=== PATIENT | female | born 1960 | race Caucasian/White ===

== ENCOUNTER 2021-06-15 10:15 | Outpatient (RCR) | payer OTHER, SELFPAY ==
--- NOTE | 2021-06-15 11:46 | PTOPEVAL ---
PHYSICAL THERAPY EVALUATION Thank you for referring Taylor Bunn to [facility]– [place].? Loida was evaluated for the dx of BPPV. The patient is scheduled to be seen for therapy? 1 x/week for 1-2 weeks. Please review, sign, date and return this plan of care BRADEN. I agree with and certify that the following plan of care is medically necessary. Referring Physician Date Attending Provider: Song Yeager MD *PT Outpatient Evaluation Start: 06/15/21 10:31 Freq: Status: Active Protocol: Document 06/15/21 10:31 MLV (Rec: 06/15/21 11:34 MLV [id number]) Therapy Assessment Status Assessment Status Assessment Status Evaluation Evaluation Information Problem Diagnosis BPPV Onset 2017 Cause no injury Additional Evaluation Detail In 2017 the pt had been sick with the flu and started having dizziness and odor sensitivities after it. The patient will have a few weeks with no symptoms but then can wake up with severe dizziness. The patient had a severe bout in April and corrected it after watching a video on how to do some BPPV exercises. The patient got relief with the exercises and has been symptom free since then. The patient reports she still will have dizziness in am if she sleeps on her right side. Pain Assessment Timing of Pain Assessment Timing of Pain Assessment Assessment Self Report Self Report Pain Level 0 Pain Score Pain Score 0: Self Report Upper Extremity Range of Motion General Upper Extremity Range of Motion Reason Not Measured WFL/Left,WFL/Right Lower Extremity Range of Motion General Lower Extremity Range of Motion Reason Not Measured WFL/Left,WFL/Right Lower Extremity Muscle Strength Testing General Lower Extremity Strength Reason Not Measured WFL/Left,WFL/Right Upper Extremity Muscle Strength Testing General Upper Extremity Strength Reason Not Measured WFL/Left,WFL/Right Bed Mobility Assessment Bed Mobility Bed Mobility Assistive Devices None Bed Type Mat Overall Bed Mobility Ability Independent Bed Mobility Comments no noted guarding for sit to supine, mild guarding for supine to sit. Pt reports concern when sitting from supine for
--- NOTE | 2021-07-01 11:47 | PCPTNOTE ---
PHYSICAL THERAPY DISCHARGE Attending Provider: Song Yeager MD Patient:Taylor Bunn Date of :1960 Patient has not returned for any further treatments since 06/15/2021, therefore she will be discharged at this time. The patient called and cancelled appts. and reports feeling better and not needing any further treatment. Patient?s initial visit was on 06/15/2021 10:30 and she had a total of 1 visit. The goals have been met. Thank you for referring this patient to [facility]. Please review, sign, date and return this discharge summary BRADEN. I have been updated about the patient's current status and I agree with discharge from the above service at this time. Referring Physician Date
== END 2021-07-02 16:41 | disposition home or self-care (01) ==
LOC: ANHPT 10:15
PROVIDERS: PCP Student in an Organized Health Care Education/Training Program; Visit Provider Otolaryngology
DX: H81.10 Benign paroxysmal vertigo, unspecified ear (principal)
CPT/HCPCS: 97110; 97161

== ENCOUNTER 2021-06-18 08:42 | Outpatient (CLI) | payer OTHER, SELFPAY ==
--- NOTE | ~2021-06-18 | MR_ITS ---
EXAMINATION: MR brain IAC wo/w con DATE: 06/18/2021 11:04 INDICATION: Benign paroxysmal vertigo, unspecified ear. TECHNIQUE: Magnetic resonance imaging (MRI) of the brain, brainstem, and internal auditory canals was performed without and with 18 mL MultiHance intravenous contrast. Sequences included sagittal and ax ial T1-weighted FSE, axial diffusion-weighted FS EPI, axial T2*-weighted GRE, axial T2-weighted FLAIR Propeller, axial T2-weighted Propeller, small lofun-ri-pkhb coronal FIESTA, small pgpoa-zd-oixe satish nal T1-weighted FSE, and small rhekb-wx-hrqf axial T1-weighted SPGR. Postcontrast sequences included axial T1-weighted FSE, small kzohm-rl-rtuv coronal T1-weighted FSE, and small rnbxc-vq-oeny axial T1- weighted SPGR. Apparent diffusion coefficient (ADC) maps were created. COMPARISON: None. FINDINGS: There are scattered areas of nonspecific increased T2-weighted signal intensity in the cere bral white matter, which is within normal limits for the patient's age. There is no intracranial hemo rrhage, acute infarction, or abnormal intracranial mass lesion. The ventricles are normal in size. Th e internal auditory canals and inner and middle ears are normal. There is mild mucosal thickening in the paranasal sinuses. The orbits are normal. IMPRESSION: 1. Normal brain. Reviewed, dictated and finalized at location A. IMPRESSION: 1. Normal brain.
[2021-06-18 09:58] LABS: Estimated Glomerular Filt Rate 57
== END 2021-06-18 08:43 | disposition home or self-care (01) ==
PROVIDERS: PCP Student in an Organized Health Care Education/Training Program; Visit Provider Otolaryngology
DX: H81.10 Benign paroxysmal vertigo, unspecified ear (principal)
CPT/HCPCS: 70553; A9577

== ENCOUNTER 2023-06-09 13:18 | Observation (INO) | payer OTHER, SELFPAY ==
[2023-06-09] VITALS (33 sets, daily range): BP systolic 111–164; BP diastolic 59–73; PULSE 55–90; RESP 9–22; TEMP 36.4–36.8; O2SAT 96–100; BMI 31.1
--- NOTE | ~2023-06-09 | XR_ITS ---
EXAMINATION: XR chest 2V DATE: 06/09/2023 14:14 INDICATION: Chest pain. Arrhythmia. TECHNIQUE: PA and lateral views of the chest were obtained. COMPARISON: Chest radiograph dated 07/23/2016 FINDINGS: The lungs remain clear with no focal airspace opacities, pulmonary edema, pleural effusion or pneumot horax. The cardiomediastinal silhouette is normal. Small bone island at the right humeral head. Mild thoracic spondylosis. IMPRESSION: 1. No acute cardiopulmonary disease. Reviewed, dictated and finalized at location A.
--- NOTE | 2023-06-09 13:20 | ECG_ITS ---
Measurements Intervals [place] Rate: 75 P: 35 MT: 145 QRS: 37 QRSD: 86 T: 53 QT: 359 QTc: 401 Interpretive Statements SINUS RHYTHM NORMAL ECG NO PREVIOUS ECG AVAILABLE FOR COMPARISON Electronically Signed On 06-09-2023 13:42:45 CDT by Bhanu Marquis D.O.
[2023-06-09 13:59] LABS: Basophils Absolute Auto 0.1 K/mm3 (0.0-0.1); Basophils Percent Auto 0.7 % (0.2-1.2); Eosinophils Absolute Auto 0.2 K/mm3 (0-0.3); Eosinophils Percent Auto 2.6 % (0-4.4); Hemoglobin 12.7 g/dL (12.0-15.0); Immature Granulocyte Absolute 0.03 K/mm3 (0.00-0.031); Immature Granulocyte Percent A 0.4 % (0-0.5); Lymphocytes Absolute Auto 1.93 K/mm3 (0.9-3.2); Lymphocytes Percent Auto 26.6 % (18.3-44.2); Mean Corpuscular HGB Conc 33.4 g/dl (32-36); Mean Corpuscular Hemoglobin 29.7 pg (26-34); Mean Platelet Volume 10.7 fl (7.4-10.4); Monocytes Absolute Auto 0.4 K/mm3 (0.1-0.6); Monocytes Percent Auto 5.5 % (2.6-8.5); Neutrophils Absolute Auto 4.7 K/mm3 (1.3-6.7); Neutrophils Percent Auto 64.2 % (45.5-73.1); Platelet Count Result 231 k/mm3 (150-375); Red Blood Count 4.27 M/mm3 (4.2-5.4); Red Cell Distribution Width 12.5 % (11.5-14.5); White Blood Count 7.3 K/mm3 (4.5-10.0)
--- NOTE | 2023-06-09 14:09 | PC.NURSE ---
Patient off unit to radiology.
[2023-06-09 14:13] LABS: INR 0.9; Prothrombin Time 12.7 Seconds (11.1-14.7)
[2023-06-09 14:14] LABS: Partial Thromboplastin Time 27.5 SECONDS (22.3-36.8)
[2023-06-09 14:24] LABS: Alanine Aminotransferase 28 U/L (6-35); Albumin Level 4.6 g/dL (3.5-5.1); Alkaline Phosphatase 94 U/L (38-126); Anion Gap 8 mmol/L (8-16); Aspartate Amino Transferase 34 U/L (14-36); Bilirubin,Total 0.4 mg/dL (0.2-1.3); Blood Urea Nitrogen 13 mg/dL (7-17); Calcium 9.3 mg/dL (8.4-10.2); Carbon Dioxide 25 mmol/L (22-30); Chloride 104 mmol/L (98-107); Estimated CRCL calculation 97 ml/min; Estimated Glomerular Filt Rate > 60; Glucose 102 mg/dL (65-110); Lipase 48 U/L (23-300); Potassium 3.9 mmol/L (3.4-5.0); Sodium 137 mmol/L (137-145)
[2023-06-09 14:35] LABS: Troponin I < 0.012 ng/mL (0.000-0.034)
--- NOTE | 2023-06-09 14:44 | ED.ARRPALP ---
HPI - Arrhythmia/Palpitations General Chief Complaint: Arrhythmia/Palpitations Stated Complaint: Chest discomfort and palpitations Time Seen by Provider: 06/09/23 14:08 History of Present Illness HPI narrative: Patient is a 63-year-old female with a history of paroxysmal A-fib presenting with palpitations. Patient states that her senior web developer is at [facility]. States that she saw him last month. States that she has metoprolol as needed for when she goes into A-fib. States that for the last several days she has been having palpitations and her Apple Watch that says A-fib. Complains of intermittent substernal/epigastric shooting pains. No lightheadedness or shortness of breath. States that she took her metoprolol yesterday and the day before which did resolve the palpitations but then they returned. She has not taken her metoprolol today. States that she is currently experiencing palpitations. No fevers or chills, headache, numbness or weakness, cough, abdominal pain, nausea or vomiting, diarrhea, leg swelling. Related Data Home Medications Medication Instructions Recorded Confirmed Vitamin D3 (with calcium carb) 1 tablet PO DAILY 06/09/23 06/09/23 acetaminophen 500 mg tablet 500 mg PO Q6H PRN Migraine Headache 06/09/23 06/09/23 cholecalciferol (vitamin D3) 25 25 mcg PO DAILY 06/09/23 06/09/23 mcg (1,000 unit) tablet (Vitamin D3) cyanocobalamin (vitamin B-12) 1,000 mcg sublingual WEEKLY 06/09/23 06/09/23 1,000 mcg sublingual tablet magnesium See Rx Instructions .Route .COMPLEX 06/09/23 06/09/23 multivit with minerals-iron 18 1 tablet PO DAILY 06/09/23 06/09/23 mg-folic ac 400 mcg-vit K 25 mcg tablet (Adults Multivitamin) Allergies Allergy/AdvReac Type Severity Reaction Status Date / Time levofloxacin Allergy Severe angioedema Verified 06/09/23 13:54 propoxyphene Allergy Severe NAUSEA AND Verified 06/09/23 13:54 VOMITING vancomycin Allergy Severe rash Verified 06/09/23 13:54 hydrocodone Allergy Unknown Unknown Verified 06/09/23 13:54 paroxetine Allergy Unknown Unknown Verified 06/09/23 13:54 Sulfa (Sulfonamide Allergy Unknown Rash Verified 06/09/23 18:48 Antibiotics) Review of Systems Review of Systems: All systems reviewed & are unremarkable except as noted in HPI and below PMFSH Past Medical History Medical History (Updated 06/15/23 @ 14:56 by Annie Jara MD) Atrial fibrillation Migraine Vestibular migraine Surgical History Surgical History (Updated 06/09/23 @ 22:28 by Brigette Greenwood NP) History of back surgery Hx of cholecystectomy Family History Family History (Updated 06/09/23 @ 22:29 by Brigette Greenwood NP) Other Hypertension Social History Social History (Updated 06/09/23 @ 22:37 by Brigette Greenwood NP) Social History: The patient lives with her . She has 1 daughter. 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 She is a lifelong nonsmoker. She does not use any alcohol marijuana or illicit drugs. Her is a durable power district attorney for healthcare. Code status full code Smoking status: Never smoker Alcohol intake: never Substance use: never Lack of Transportation: No Lack of Food: Never True Current Housing: I Have Housing Concerned About Future Housing: No Difficulty Paying Gas/Electric Bills: No Difficulty Paying for Meds: No Currently Unemployed: No Education: Bachelor's Degree Difficulty w/ Childcare or Family Care: No Spiritual care concerns: No Exam Narrative: GENERAL: Well-appearing, well-nourished, and in no acute distress. HEAD: Normocephalic, atraumatic. EYES: PERRLA and EOMI. ENT: Nares clear, no rhinorrhea or epistaxis. Mucous membranes moist. NECK: Supple. CHEST: Clear to auscultation. No respiratory distress. HEART: Regular rate and rhythm. No murmur heard. Normal peripheral pulses. ABDOMEN: Soft, nontender, nondistended EXTREMITIES: Normal range of
[2023-06-09] MEDS: LACTATED RINGERS 1,000 ML 999 ML IV CONT (15:26)
--- NOTE | 2023-06-09 15:35 | PC.NURSE ---
Per verbal order from Dr. Jara ASA discontinued.
[2023-06-09 16:23] LABS: Troponin I < 0.012 ng/mL (0.000-0.034)
--- NOTE | 2023-06-09 18:46 | ADMGEN ---
This patient, Taylor Bunn, was admitted to 2 Medical Room 260-01. Patient/family oriented to hospital policies and general routines including ID bracelet, bed and alarms, visiting hours, pain management, procedures, bathroom and other care routines, personal items, smoking policy, room service/diet, and visiting hours. Information on how to activate the Rapid Response Team has been discussed. Patient/Family are encouraged to report perceived risks to care and to ask questions if they do not understand what they are told or what they should do.
[2023-06-09 20:08] LABS: Troponin I < 0.012 ng/mL (0.000-0.034)
--- NOTE | 2023-06-09 21:47 | PM.IMHP ---
H&P: HPI History of Present Illness Date/Time: 06/09/23 21:47 Chief Complaint: Palpitations. Narrative: This is a 63-year-old female patient who stated that she has a history. Small atrial fibrillation with palpitations. The patient typically goes to flanger at [facility]. The patient stated that she takes p.r.n. metoprolol as needed when she goes into an irregular heart rate. The patient is not on any anticoagulation. The patient stated that she was having palpitations today that she has a Apple watch that was stating she is in AFib people the patient has no lightheadedness or short nests of breath. The patient did not take her metoprolol today. The patient has migraines that she just takes Tylenol for the symptoms.. Patient is complaining of neck pain. Patient's EKG was sinus rhythm. Her heart rate is in 60s. She is currently sinus rhythm. Troponins are negative x3. Chest x-ray was read as no acute cardiopulmonary disease. The patient is being admitted to observation status on the date of service of 06/08/2023. Review of Systems Review of Systems: All systems reviewed & are unremarkable except as noted in HPI and below Constitutional: Constitutional: Reports as per HPI and Reports no additional constitutional complaints Eyes: Eyes: Reports as per HPI and Reports no additional eye complaints ENT: Reports system reviewed and no additional complaints, except as documented and Reports Normal hearing present Cardiovascular: Cardiovascular: Reports no additional cardiovascular complaints Respiratory: Respiratory: Reports no additional respiratory complaints and Reports no additional respiratory complaints Gastrointestinal: Gastrointestinal: Reports as per HPI and Reports no additional gastrointestinal complaints Musculoskeletal: Musculoskeletal: Reports no additional musculoskeletal complaints Integumentary/Breasts: Skin/Breast: Reports system reviewed and no additional complaints, except as docu and Reports as per HPI Neurologic: Reports system reviewed and no additional complaints, except as documented, Reports as per HPI and Reports Normal hearing present Psychiatric: Psychiatric: Reports no additional psychiatric complaints and Reports as per HPI Endocrine: Endocrine: Reports no additional endocrine complaints Hematologic/Lymphatic: Hematologic/Lymphatic: Reports no additional hematologic/lymphatic complaints Allergic/Immunologic: Allergic/Immunologic: Reports no additional allergic/immunologic complaints [facility] Past Medical History Medical History (Updated 06/09/23 @ 22:40 by Brigette Greenwood NP) Atrial fibrillation Migraine Vestibular migraine Surgical History Surgical History (Updated 06/09/23 @ 22:28 by Brigette Greenwood NP) History of back surgery Hx of cholecystectomy Family History Family History (Updated 06/09/23 @ 22:29 by Brigette Greenwood NP) Other Hypertension Social History Social History (Updated 06/09/23 @ 22:37 by Brigette Greenwood NP) Social History: The patient lives with her . She has 1 daughter. 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 She is a lifelong nonsmoker. She does not use any alcohol marijuana or illicit drugs. Her is a durable power tax associate attorney for healthcare. Code status full code Smoking status: Never smoker Alcohol intake: never Substance use: never Lack of Transportation: No Lack of Food: Never True Current Housing: I Have Housing Concerned About Future Housing: No Difficulty Paying Gas/Electric Bills: No Difficulty Paying for Meds: No Currently Unemployed: No Education: Bachelor's Degree Difficulty w/ Childcare or Family Care: No Spiritual care concerns: No Meds Home Medications and Allergies Home Medications Medication Instructions Recorded Confirmed Type Vitamin D3 (with calcium carb) 1 tablet PO DAILY 06/09/23 06/09/23 History acetamino
[2023-06-09] MEDS: ACETAMINOPHEN 500 MG TABLET PO (22:56)
[2023-06-09] MEDS: ENOXAPARIN 100 MG/ML SYRINGE 90 MG SUB-Q (22:57)
[2023-06-10] VITALS (8 sets, daily range): BP systolic 113–124; BP diastolic 57–75; PULSE 57–90; RESP 16–20; TEMP 36–36.5; O2SAT 99–100
--- NOTE | 2023-06-10 | ECHO_ITS ---
Patient Info Name: Taylor Bunn Age: 63 years : 1960 Gender: Female Ht: 67 in Wt: 198 lbs BSA: 2.09 m2 HR: 60 bpm BP: 114 / 58 mmHg Heart Rhythm: Sinus Rhythm Technical Quality: Fair Exam Date: 06/10/2023 10:04 AM Exam Location: [facility] Patient Status: Inpatient Admit Date: 06/09/2023 Staff Ordering Physician: Brigette Greenwood NP Oil Field Operator: Deanna James RDCS Attending Provider: Hannah Baca MD Referring Physician: Timo DIMAS; Exam Type: CA echo doppler color flow Study Info Indications R00.2 - Palpitations Complete two-dimensional, color flow and Doppler transthoracic echocardiogram is performed. Summary 1. Complete two-dimensional, color flow and Doppler transthoracic echocardiogram is performed. 2. Normal left and right ventricular size and systolic function. 3. Normal diastolic function. 4. No valvular dysfunction noted by Doppler. 5. Normal sinus rhythm. Left Ventricle Left ventricular chamber dimension is normal. Left ventricular systolic function is normal, estimated at 60-65%. The left ventricular diastolic function is normal. Right Ventricle Right ventricular chamber dimension is normal. Left Atria Left atrial chamber dimension is mildly enlarged. Right Atria Right atrial chamber dimension is normal. Aortic Valve The aortic valve is normal. Pulmonic Valve The pulmonic valve is not well visualized. Mitral Valve The mitral valve has normal leaflets. Tricuspid Valve The tricuspid valve leaflets are normal. Pericardium/Pleural The pericardium appears normal. Aorta The aortic root size at the sinus of Valsalva is normal. Left Ventricular Outflow Tract Name Value Normal LVOT 2D LVOT Diameter 2.0 cm LVOT Doppler LVOT Peak Gradient 5 mmHg LVOT Mean Gradient 2 mmHg LVOT VTI 21 cm LVOT VTI/AV VTI Ratio 0.7 LVOT Stroke Volume 67 ml LVOT CO 3.9 l/min LVOT CI 1.9 l/min/m2 Pulmonic Valve Name Value Normal RVOT Doppler RVOT Peak Gradient 2 mmHg PV Doppler PV Peak Gradient 10 mmHg Mitral Valve Name Value Normal MV Doppler MV Decel Dundy 567 cm/s2 MV PHT 45 ms MV Area (PHT) 4.9 cm2 4.0-5.0 MV Diastolic Function MV E Peak Velocity
[2023-06-10 06:30] LABS: Basophils Percent Auto 0.5 % (0.2-1.2); Eosinophils Absolute Auto 0.2 K/mm3 (0-0.3); Eosinophils Percent Auto 3.2 % (0-4.4); Hematocrit 36.5 % (37.0-47.0); Immature Granulocyte Absolute 0.03 K/mm3 (0.00-0.031); Immature Granulocyte Percent A 0.5 % (0-0.5); Lymphocytes Absolute Auto 2.09 K/mm3 (0.9-3.2); Lymphocytes Percent Auto 33.8 % (18.3-44.2); Mean Corpuscular HGB Conc 32.9 g/dl (32-36); Mean Corpuscular Hemoglobin 29.6 pg (26-34); Mean Corpuscular Volume 89.9 fl (80-100); Monocytes Absolute Auto 0.5 K/mm3 (0.1-0.6); Monocytes Percent Auto 7.6 % (2.6-8.5); Neutrophils Absolute Auto 3.4 K/mm3 (1.3-6.7); Neutrophils Percent Auto 54.4 % (45.5-73.1); Platelet Count Result 209 k/mm3 (150-375); Red Blood Count 4.06 M/mm3 (4.2-5.4); Red Cell Distribution Width 12.6 % (11.5-14.5); White Blood Count 6.2 K/mm3 (4.5-10.0)
[2023-06-10 06:44] LABS: Lactic Acid Reflex 2.1 mmol/L (0.7-2.0)
[2023-06-10 06:57] LABS: Alanine Aminotransferase 26 U/L (6-35); Albumin Level 4.1 g/dL (3.5-5.1); Alkaline Phosphatase 83 U/L (38-126); Anion Gap 4 mmol/L (8-16); Aspartate Amino Transferase 31 U/L (14-36); Bilirubin,Total 0.8 mg/dL (0.2-1.3); Blood Urea Nitrogen 12 mg/dL (7-17); Carbon Dioxide 29 mmol/L (22-30); Chloride 107 mmol/L (98-107); Estimated CRCL calculation 96 ml/min; Estimated Glomerular Filt Rate > 60; Glucose 89 mg/dL (65-110); Magnesium 2.2 mg/dL (1.6-2.3); Potassium 4.5 mmol/L (3.4-5.0); Sodium 140 mmol/L (137-145)
[2023-06-10 08:20] LABS: Free T4 Free Thyroxine Reflex 1.08 ng/dL (0.78-2.19)
[2023-06-10] MEDS: MULTIVITAMINS /C LUTEIN (CENTRUM SILVER) TABLET *BKC 1 TAB PO (08:40)
[2023-06-10] MEDS: ACETAMINOPHEN 500 MG TABLET PO (08:41)
[2023-06-10] MEDS: METOPROLOL SUCCINATE EXT REL 12.5 MG TABCR PO (08:41)
[2023-06-10] MEDS: CHOLECALCIFEROL 1,000 UNITS TABLET 1000 UNITS PO (08:41)
[2023-06-10] MEDS: ENOXAPARIN 100 MG/ML SYRINGE 90 MG SUB-Q (08:44)
[2023-06-10 09:25] LABS: Reflex Lactic Acid Yes or No Add Lactic
[2023-06-10 09:53] LABS: Lactic Acid 2.2 mmol/L (0.7-2.0)
[2023-06-10 11:11] LABS: Total Triiodothyronine (T3) 1.66 NG/ML (0.97-1.69)
[2023-06-10] MEDS: LEVOTHYROXINE SODIUM 25 MCG TABLET PO (11:23)
--- NOTE | 2023-06-10 14:11 | PM.DS ---
DS: Admitting Diagnosis Discharge Date 06/10/23 1200 Admitting Diagnosis Afib/A.flutter DS: Discharge Diagnosis Discharge Diagnosis (1) Atrial fibrillation: Qualifiers: Atrial fibrillation type: unspecified Qualified Code(s): I48.91 - Unspecified atrial fibrillation Code(s): I48.91 - Unspecified atrial fibrillation Status: Acute Assessment and Plan: The patient stated that she has a safety inspector at [facility] however she would be happy to see the safety inspector here. Will need to get records from her safety inspector at [facility]. The patient stated that the attempted to do a stress test at 1 time but it was not completed. The patient does not recall having an echo. The patient stated she has an Apple watch and it was telling her she was in atrial fibrillation. The patient has p.r.n. metoprolol. However I started her on a low-dose once a day metoprolol as her heart rate is in the 60s now. Hold if her heart rate becomes 50 or less. I did start her on subcu Lovenox. Twin Vasc score is only a 1. So she may just be able to take a aspirin. Further recommendation per Cardiology. I did not feel comfortable giving a very big dose of metoprolol as her blood pressure is 128/65 at this point. The patient stated that she was having palpitations. Check thyroid levels and magnesium as well. (2) Vestibular migraine: Code(s): G43.809 - Other migraine, not intractable, without status migrainosus Status: Acute Assessment and Plan: Continue with IV Tylenol. She stated this is which she takes at home. DS: Summary Hospital Course Hospital Course: patient is 63-year-old female with past medical history AFib, migraine who presented to the ED with complaints AFib and palpitations. Upon arrival to the ED EKG was performed showed sinus rhythm. Patient was placed in tele monitor which did catch a couple of a flutter moments. Metoprolol has been given and patient was started on daily metoprolol instead of p.r.n.. TSH was noted to be elevated at 9.730. Magnesium was fine at 2.2 along with potassium of 4.5. Patient did state that she had these episodes Tuesday through has been taking the metoprolol most days. Spoke with Cardiology who stated the patient needs to follow-up with her safety inspector for a 30 day event monitor. Did speak to the patient at length about plan of care. Talked to her and her about repeat labs in 6 weeks for the TSH, followed up with her safety inspector for recommendations for an event monitor and to continue metoprolol daily and levothyroxine. Patient and both verbalized understanding. Also explained her that if she does going to a sustained atrial rhythm to come to the hospital for further treatment. Patient did verbalize understanding currently patient is denying any chest pain, shortness a breath, nausea, vomiting, diarrhea constipation. Status at Discharge Functional status at discharge: independent ambulation Overall status at discharge: patient is progressing back to baseline Time Spent with Patient Time attestation: Total time spent providing and/or coordinating discharge services: 43 minutes Time spent: Greater than 30 minutes Specific discharge activities: Diagnostic testing, chart review, developing a treatment plan, education, care coordination documentation, physical exam, result review Exam Narrative: General: well-nourished, well-appearing 63-year-old female, sitting up in bed, comfortable, NARD Neuro: awake, alert and oriented x4, speech clear, no focal neuro deficits noted HEENMT: normocephalic, atraumatic, EOMI, sclerae anicteric, moist oral mucosa Respiratory: Clear to auscultation bilaterally without crackles, rhonchi or wheezes, nonlabored breathing Cardio: regular rate, regular rhythm with S1-S2 Abdomen: nondistended, normoactive bowel sounds, soft, nontender to palpation Extremities: no edema, erythema, or tenderne
== END 2023-06-10 16:08 | disposition home or self-care (01) ==
LOC: ANHED 14:31 → ANH2MED 18:27
PROVIDERS: Emergency Medicine; Nurse Practitioner; Admitting Provider Family Medicine; Emergency Provider Emergency Medicine; PCP Student in an Organized Health Care Education/Training Program; Visit Provider Chiropractor
DX: R00.2 Palpitations (principal); I48.91 Unspecified atrial fibrillation; R07.9 Chest pain, unspecified; G43.809 Other migraine, not intractable, without status migrainosus; Z79.1 Long term (current) use of non-steroidal anti-inflammatories (NSAID); Z79.899 Other long term (current) drug therapy
CPT/HCPCS: 36415; 71046; 80053; 83605; 83690; 83735; 84439; 84443; 84480; 84484; 85025; 85610; 85730; 93005; 93306; 96360; 96372; 99285; A9270; G0378; J1650; J7120

== ENCOUNTER 2023-09-16 15:20 | Emergency (ER) | payer OTHER, SELFPAY ==
[2023-09-16 15:38] VITALS: BP 131/71; PULSE 78; RESP 18; TEMP 36.9; O2SAT 98
--- NOTE | 2023-09-16 17:29 | ED.SKABFB ---
HPI - Skin/Abscess/Foreign Bdy General Chief complaint: Skin/Abscess/Foreign Body Stated complaint: possible thrombosed hemorrhoid Time Seen by Provider: 09/16/23 17:11 Source: patient Mode of arrival: ambulatory Limitations: no limitations History of Present Illness HPI narrative: This is a 63-year-old female that presents to the emergency department for pain with bowel movements. Reports she has been having painful bowel movements all week. Reports trouble with constipation chronically. She is also had a little bit of bright red blood in the stool and when she wipes. She has been trying rhej-zbn-lcbpynz creams to treat hemorrhoids with little relief. She is not on any anticoagulation. She additionally reports she has had some dysuria today. Denies fevers, abdominal pain, or vomiting. Related Data Home Medications Medication Instructions Recorded Confirmed Vitamin D3 (with calcium carb) 1 tablet PO DAILY 06/09/23 06/09/23 acetaminophen 500 mg tablet 500 mg PO Q6H PRN Migraine Headache 06/09/23 06/09/23 cholecalciferol (vitamin D3) 25 25 mcg PO DAILY 06/09/23 06/09/23 mcg (1,000 unit) tablet (Vitamin D3) cyanocobalamin (vitamin B-12) 1,000 mcg sublingual WEEKLY 06/09/23 06/09/23 1,000 mcg sublingual tablet magnesium See Rx Instructions .Route .COMPLEX 06/09/23 06/09/23 multivit with minerals-iron 18 1 tablet PO DAILY 06/09/23 06/09/23 mg-folic ac 400 mcg-vit K 25 mcg tablet (Adults Multivitamin) Allergies Allergy/AdvReac Type Severity Reaction Status Date / Time levofloxacin Allergy Severe angioedema Verified 09/16/23 15:21 propoxyphene Allergy Severe NAUSEA AND Verified 09/16/23 15:21 VOMITING vancomycin Allergy Severe rash Verified 09/16/23 15:21 hydrocodone Allergy Unknown Unknown Verified 09/16/23 15:21 paroxetine Allergy Unknown Unknown Verified 09/16/23 15:21 Sulfa (Sulfonamide Allergy Unknown Rash Verified 09/16/23 15:21 Antibiotics) Review of Systems Review of Systems: CONSTITUTIONAL: Denies fever GASTROINTESTINAL: Denies abdominal pain, nausea, vomiting GENITOURINARY: Denies dysuria All systems reviewed & are unremarkable except as noted in HPI and below PMFSH Past Medical History Medical History (Updated 09/16/23 @ 18:05 by Umm Garcia PA-C) Atrial fibrillation Migraine Vestibular migraine Surgical History Surgical History (Updated 06/09/23 @ 22:28 by Brigette Greenwood NP) History of back surgery Hx of cholecystectomy Family History Family History (Updated 06/09/23 @ 22:29 by Brigette Greenwood NP) Other Hypertension Social History Social History (Updated 06/09/23 @ 22:37 by Brigette Greenwood NP) Social History: The patient lives with her . She has 1 daughter. 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 She is a lifelong nonsmoker. She does not use any alcohol marijuana or illicit drugs. Her is a durable power litigation attorney associate for healthcare. Code status full code Smoking status: Never smoker Alcohol intake: never Substance use: never Lack of Transportation: No Lack of Food: Never True Current Housing: I Have Housing Concerned About Future Housing: No Difficulty Paying Gas/Electric Bills: No Difficulty Paying for Meds: No Currently Unemployed: No Education: Bachelor's Degree Difficulty w/ Childcare or Family Care: No Spiritual care concerns: No Exam Narrative: GENERAL: Well-appearing, well-nourished, and in no acute distress. HEAD: Normocephalic, atraumatic. EYES: EOMI. CHEST: No respiratory distress. HEART: Regular rate ABDOMEN: Soft, nontender, nondistended, normal active bowel sounds. EXTREMITIES: Normal range of motion. No edema. SKIN: Warm, dry, no rash. NEURO: No focal deficits. Alert and oriented x3. PSYCH: Normal mood and affect RECTAL: Fissure present. No active bleeding Course Course Emergency Course: Patient updated on work-up and agre
[2023-09-16 17:59] LABS: Appearance Urine Clear (Clear); Bacteria Urine None Seen /hpf; Bilirubin Urine Negative (Negative); Blood Urine Negative (Negative); Color Urine Yellow (Yellow); Glucose Urine UA Negative (Negative); Ketones Urine Negative (Negative); Leukocyte Esterase Ur 2+ LEU/UL (Negative); Nitrate Urine Negative (Negative); Non Pathogenic Casts 0-2; Protein Urine Negative (Negative); RBC Urine 0-2 /hpf (0-2); Specific Grav Ur 1.006 (1.001-1.035); Squamous Epithelial Cell Urine None seen /hpf (Few); Urobilinogen Urine 0.2 mg/dL (<2.0); pH Urine 6.5 (5.0-9.0)
[2023-09-16 18:01] VITALS: BP 118/75; PULSE 61; RESP 16; O2SAT 99
[2023-09-16 18:01] LABS: Add Urine Microscopic? YES
== END 2023-09-16 18:37 | disposition home or self-care (01) ==
PROVIDERS: Emergency Provider Physician Assistant; PCP Student in an Organized Health Care Education/Training Program
DX: K60.2 Anal fissure, unspecified (principal); N39.0 Urinary tract infection, site not specified; K59.09 Other constipation; I48.91 Unspecified atrial fibrillation; Z90.49 Acquired absence of other specified parts of digestive tract
CPT/HCPCS: 81001; 87086; 87088; 99283

== ENCOUNTER 2024-03-21 01:26 | Day surgery (SDC) | payer OTHER, SELFPAY ==
[2024-03-05 15:41] VITALS: BMI 31.1
[2024-03-21 08:50] VITALS: BP 122/61; PULSE 62; RESP 19; TEMP 36.2; O2SAT 100
[2024-03-21] MEDS: LACTATED RINGERS 1,000 ML 150 ML IV CONT (09:01)
--- NOTE | 2024-03-21 09:04 | WPDANESEPPF ---
Anes - Initial Pre Proc Eval Procedure: Operation Date: 03/21/24 10:00 Proposed Procedures p Screening Colonoscopy - Gio Baugh MD Date/Time: 03/21/24 09:04 Surgeon: Gio Baugh MD Pre Op Diagnosis: neoplasm screening Patient Data Age: 64 Gender: F Height: 1.7 m Weight: 83.9 kg Last Vital Signs Temp 97.1 F L 03/21/24 08:50 Pulse 62 03/21/24 08:50 Resp 19 03/21/24 08:50 BP 122/61 03/21/24 08:50 Pulse Ox 100 03/21/24 08:50 O2 Del Method Room Air 03/21/24 08:50 Allergies Allergy/AdvReac Type Severity Reaction Status Date / Time levofloxacin Allergy Severe angioedema Verified 03/21/24 08:49 propoxyphene Allergy Severe NAUSEA AND Verified 03/21/24 08:49 VOMITING vancomycin Allergy Severe rash Verified 03/21/24 08:49 hydrocodone Allergy Unknown Vomiting Verified 03/21/24 08:49 paroxetine Allergy Unknown Rash Verified 03/21/24 08:49 Sulfa (Sulfonamide Allergy Unknown Rash Verified 03/21/24 08:49 Antibiotics) Home Medications Medication Instructions Recorded Confirmed Type acetaminophen 500 mg tablet 500 mg PO Q6H PRN Migraine Headache 06/09/23 03/05/24 History cholecalciferol (vitamin D3) 25 25 mcg PO BID 06/09/23 03/05/24 History mcg (1,000 unit) tablet (Vitamin D3) magnesium See Rx Instructions .Route .COMPLEX 06/09/23 03/05/24 History levothyroxine 25 mcg capsule 25 mcg PO DAILY #30 caps 06/10/23 03/21/24 Rx metoprolol succinate 25 mg 12.5 mg PO DAILY #30 tabs 06/10/23 03/05/24 Rx tablet,extended release 24 hr Patient hx anesthesia problems: none Family hx anesthesia problems: none Results Review: All pre-operative results and documents have been reviewed as part of the pre-operative evaluation. ON LICENSE OF [facility] Past Medical History Medical History (Updated 09/17/23 @ 00:00 by Kirby Thomas) Atrial fibrillation Migraine Vestibular migraine Surgical History Surgical History (Updated 06/09/23 @ 22:28 by Brigette Greenwood NP) History of back surgery Hx of cholecystectomy Family History Family History (Updated 06/09/23 @ 22:29 by Brigette Greenwood NP) Other Hypertension Social History Social History (Updated 06/09/23 @ 22:37 by Brigette Greenwood NP) Social History: The patient lives with her . She has 1 daughter. 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 She is a lifelong nonsmoker. She does not use any alcohol marijuana or illicit drugs. Her is a durable power hand cloth cutter for healthcare. Code status full code Smoking status: Never smoker Alcohol intake: never Substance use: never Substance use type: does not use Lack of Transportation: No Lack of Food: Never True Current Housing: I Have Housing Concerned About Future Housing: No Difficulty Paying Gas/Electric Bills: No Difficulty Paying for Meds: No Currently Unemployed: No Education: Bachelor's Degree Difficulty w/ Childcare or Family Care: No Living arrangements: other Additional living arrangements comments: with sp Spiritual care concerns: No Anes - Eval Final PreProcedure Day of Procedure 03/21/24 09:04 Patient weight: normal Heart: regular rate and rhythm Lungs: clear to auscultation Neurological: alert and oriented Last oral intake: >/= 8 hours ASA classification: III Emergent: no Anesthetic plan: proceed Anesthesia type and monitoring: general GIVS and standard monitoring Results Review: All pre-operative results and documents have been reviewed as part of the pre-operative evaluation. Informed Consent: The patient's anesthetic plan and its attendant risks and benefits were discussed with the patient/family/POA. Questions were solicited and answers provided to the satisfaction of the patient/family/POA.
--- NOTE | 2024-03-21 09:53 | PM.HPGS ---
History of Present Illness History of Present Illness Consent: Risks, benefits, and alternatives have been discussed and questions answered. Patient agrees to proceed with procedure. Chief complaint: neoplasm screening Narrative: Taylor Bunn is a 64 year old female here for screening colonoscopy, last one 10 years ago Review of Systems Review of Systems: All systems reviewed & are unremarkable except as noted in HPI and below PMFSH Past Medical History Medical History (Updated 03/21/24 @ 09:53 by Gio Baugh MD) Atrial fibrillation Colon cancer screening Migraine Vestibular migraine Surgical History Surgical History (Updated 06/09/23 @ 22:28 by Brigette Greenwood NP) History of back surgery Hx of cholecystectomy Family History Family History (Updated 06/09/23 @ 22:29 by Brigette Greenwood NP) Other Hypertension Social History Social History (Updated 06/09/23 @ 22:37 by Brigette Greenwood NP) Social History: The patient lives with her . She has 1 daughter. 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 She is a lifelong nonsmoker. She does not use any alcohol marijuana or illicit drugs. Her is a durable power canal superintendent for healthcare. Code status full code Smoking status: Never smoker Alcohol intake: never Substance use: never Substance use type: does not use Lack of Transportation: No Lack of Food: Never True Current Housing: I Have Housing Concerned About Future Housing: No Difficulty Paying Gas/Electric Bills: No Difficulty Paying for Meds: No Currently Unemployed: No Education: Bachelor's Degree Difficulty w/ Childcare or Family Care: No Living arrangements: other Additional living arrangements comments: with sp Spiritual care concerns: No Meds Home Medications and Allergies Home Medications Medication Instructions Recorded Confirmed Type acetaminophen 500 mg tablet 500 mg PO Q6H PRN Migraine Headache 06/09/23 03/05/24 History cholecalciferol (vitamin D3) 25 25 mcg PO BID 06/09/23 03/05/24 History mcg (1,000 unit) tablet (Vitamin D3) magnesium See Rx Instructions .Route .COMPLEX 06/09/23 03/05/24 History levothyroxine 25 mcg capsule 25 mcg PO DAILY #30 caps 06/10/23 03/21/24 Rx metoprolol succinate 25 mg 12.5 mg PO DAILY #30 tabs 06/10/23 03/05/24 Rx tablet,extended release 24 hr Allergies Allergy/AdvReac Type Severity Reaction Status Date / Time levofloxacin Allergy Severe angioedema Verified 03/21/24 08:49 propoxyphene Allergy Severe NAUSEA AND Verified 03/21/24 08:49 VOMITING vancomycin Allergy Severe rash Verified 03/21/24 08:49 hydrocodone Allergy Unknown Vomiting Verified 03/21/24 08:49 paroxetine Allergy Unknown Rash Verified 03/21/24 08:49 Sulfa (Sulfonamide Allergy Unknown Rash Verified 03/21/24 08:49 Antibiotics) Vital Signs Vital Signs - 24 hr 03/21/24 08:50 Temperature 97.1 F L Pulse Rate 62 Respiratory Rate 19 Blood Pressure 122/61 Pulse Oximetry 100 Oxygen Delivery Room Air Exam Const: General: comfortable and no acute distress HENMT: Face/Nose/Sinus: Normal nares present Eyes: General: appearance normal, both eyes and all related structures Neck: Neck: no JVD Resp: Auscultation: clear to auscultation bilaterally Cardio: Rate: regular rate Rhythm: regular rhythm GI: Inspection: non-distended GI Palp: Yes Soft to palpation Skin: General skin exam: normal color Neuro: General: gait normal Speech: normal speech Extrem: General: normal to inspection Psych: Mental Status: mental status grossly normal Assessment and Plan Assessment and plan (1) Colon cancer screening: Code(s): Z12.11 - Encounter for screening for malignant neoplasm of colon Status: Acute Assessment and Plan: colonoscopy
[2024-03-21 10:15] VITALS: BP 96/49; PULSE 56; RESP 16; O2SAT 98
[2024-03-21 10:25] VITALS: BP 104/57; PULSE 48; RESP 11; O2SAT 98
[2024-03-21 10:35] VITALS: BP 110/61; PULSE 53; RESP 15; O2SAT 100
== END 2024-03-21 10:50 | disposition home or self-care (01) ==
PROVIDERS: PCP Family Medicine; Visit Provider Internal Medicine Gastroenterology
PROC: 0DJD8ZZ Inspection of Lower Intestinal Tract, Via Natural or Artificial Opening Endoscopic (ICD-10-PCS; CPT 45378; principal; 2024-03-21 10:00)
DX: Z12.11 Encounter for screening for malignant neoplasm of colon (principal); D12.2 Benign neoplasm of ascending colon; K51.40 Inflammatory polyps of colon without complications; K57.30 Diverticulosis of large intestine without perforation or abscess without bleeding; K64.8 Other hemorrhoids
CPT/HCPCS: 45385; 45380; 88305; J2704; J7120

== ENCOUNTER 2024-05-24 10:37 | Outpatient (CLI) | payer OTHER, SELFPAY ==
--- NOTE | ~2024-05-24 | MM_ITS ---
EXAMINATION: MM screening [facility] BI w marce HISTORY: Screening TECHNIQUE: Craniocaudal and mediolateral oblique 3-D tomosynthesis images were obtained and synthetic 2-D images were generated. CAD analysis was submitted and interpreted. COMPARISON: No prior mammogram is available for comparison at this institution. BREAST PARENCHYMAL COMPOSITION: Dense: The breasts are heterogeneously dense, which may obscure small masses FINDINGS: There is a mass in the upper outer quadrant of the right breast partially obscured by fibro glandular tissue. There is a nearby tissue marker from previous biopsy. There are asymmetries in the lower inner quadrant of the right breast and central aspect of the left breast. No suspicious calcifi cations are identified. IMPRESSION: 1. Right breast mass. Bilateral breast asymmetries. 2. Comparison to previous outside mammograms recommended. BI-RADS Category 0: Incomplete: Needs additional imaging evaluation. Reviewed, dictated and finalized at location B.
== END 2024-05-24 10:38 ==
LOC: MICIMG 10:39
PROVIDERS: PCP Family Medicine; Visit Provider Family Medicine
DX: Z12.31 Encounter for screening mammogram for malignant neoplasm of breast (principal); R92.8 Other abnormal and inconclusive findings on diagnostic imaging of breast
CPT/HCPCS: 77063; 77067

== ENCOUNTER 2024-07-11 07:12 | Outpatient (CLI) | payer OTHER, SELFPAY ==
--- NOTE | ~2024-07-11 | MR_ITS ---
MRI of the lumbar spine Clinical History: Back pain, left sciatica Technique: Axial T2-weighted images, and sagittal T1-weighted, T2-weighted, and T2 fat-sat images wer e acquired. Findings: There is no fracture or subluxation of the lumbar spine. Vertebral bodies maintain normal h eight and alignment. Intraosseous hemangioma present at L1. No suspicious bone marrow signal abnormal ity seen. At L1-L2, there is no disc bulge or herniation. There is moderate facet arthropathy. No central canal stenosis or neural foraminal narrowing. At L2-L3, there is minimal disc bulge with moderate to advanced facet arthropathy. No central canal s tenosis or definite neural foraminal narrowing. At L3-L4, there is mild disc bulge with moderate to advanced facet arthropathy. No central canal sten osis or neural foraminal narrowing. At L4-L5, there is advanced degenerative disc narrowing. There is diffuse disc bulge with moderate fa cet arthropathy. There is probable small right paracentral disc extrusion. There is no central canal stenosis. There is moderate right neural foraminal narrowing, and mild left neural foraminal narrowin g. Possible focal impingement of the descending right L5-S1 level nerve root. At L5-S1, there is severe degenerative disc narrowing. There is mild disc bulge and moderate facet ar thropathy. No central canal stenosis. There is moderate bilateral neural foraminal narrowing. Impression: Suspected small right paracentral disc extrusion at L4-L5, which may impinge the descending right-oneil ed L5-S1 level nerve root. Additional moderate degenerative changes, as above. Reviewed, dictated and finalized at location M. Impression: Suspected small right paracentral disc extrusion at L4-L5, which may impinge th e descending right-sided L5-S1 level nerve root. Additional moderate degenerative changes, as above.
== END 2024-07-11 07:13 ==
PROVIDERS: PCP Family Medicine; Visit Provider Family Medicine
DX: M46.1 Sacroiliitis, not elsewhere classified (principal); M54.50 Low back pain, unspecified; M79.604 Pain in right leg
CPT/HCPCS: 72148

== ENCOUNTER 2025-06-07 13:49 | Outpatient (CLI) | payer OTHER, SELFPAY ==
--- NOTE | ~2025-06-07 | MM_ITS ---
EXAMINATION: MM screening [facility] w [facility] HISTORY: Screening TECHNIQUE: Craniocaudal and mediolateral oblique 3-D tomosynthesis images were obtained and synthetic 2-D images were generated. CAD analysis was submitted and interpreted. COMPARISON: Comparison to multiple prior studies sequentially, with oldest reviewed study dated 11/28. BREAST PARENCHYMAL COMPOSITION: Not dense: There are scattered areas of fibroglandular density. FINDINGS: There is no evidence of suspicious mass, calcification, or architectural distortion to sugg est malignancy in either breast. There has been no suspicious interval change. IMPRESSION: 1. No mammographic evidence of malignancy. 2. Recommend routine screening mammography in one year. BI-RADS Category 1: Negative Reviewed, dictated and finalized at location A.
== END 2025-06-07 13:50 | disposition home or self-care (01) ==
PROVIDERS: PCP Family Medicine
DX: Z12.31 Encounter for screening mammogram for malignant neoplasm of breast (principal)
CPT/HCPCS: 77063; 77067